=== PATIENT | female | born 1935 ===

== ENCOUNTER 2017-10-30 09:44 | Emergency (ER) | payer SELFPAY ==
[2017-10-30 10:10] VITALS: O2SAT 97
[2017-10-30] MEDS ORDERED: Sodium Chloride 0.9% 1,000 ML IV STA (11:01)
--- NOTE | 2017-10-30 11:33 | ED PDOC ---
HPI: General Adult Time Seen by Provider: 10/30/17 10:00 Chief Complaint (Nursing): High Blood Pressure Chief Complaint (Provider): Constipation & dizziness History Per: Patient History/Exam Limitations: no limitations Onset/Duration Of Symptoms: Days (x2) Have you had recent travel within the past 21 days to any of the following countries: [place], [place], [place] or [place]?: Yes Other Location:: [facility] Current Symptoms Are (Timing): Still Present Additional Complaint(s): Scarlett Doran is an 82 year old female, with a past medical history of hypertension, depression, and right knee replacement surgery , who presents to the emergency department accompanied by daughter complaining of constipation, some dizziness, and loss of appetite onset x2 days. Patient reports she recently came from [facility] x2 months ago. She denies any vomiting, fever, or pain. No further medical complaints. PMD: None provided. Past Medical History Reviewed: Historical Data, Nursing Documentation, Vital Signs Vital Signs: Last Vital Signs Temp 97.4 F L 10/30/17 16:05 Pulse 72 10/30/17 16:05 Resp 20 10/30/17 16:05 BP 193/75 H 10/30/17 16:05 Pulse Ox 97 10/30/17 16:08 - Medical History PMH: Depression, HTN - Surgical History Other surgeries: Right knee replacement - Family History Family History: States: Unknown Family Hx - Social History Current smoker - smoking cessation education provided: No Alcohol: None Drugs: Denies - Home Medications Home Medications: Ambulatory Orders Medication Instructions Recorded Nitrofurantoin Macrocrystals 100 mg PO BID #14 cap 10/30/17 [Macrobid] - Allergies Allergies/Adverse Reactions: Allergies Allergy/AdvReac Type Severity Reaction Status Date / Time No Known Allergies Allergy Verified 10/30/17 10:15 Review of Systems ROS Statement: Except As Marked, All Systems Reviewed And Found Negative Constitutional: Negative for: Fever, Other (pain) Gastrointestinal: Positive for: Constipation, Other (loss of appetite). Negative for: Vomiting Neurological: Positive for: Dizziness (some) Physical Exam - Reviewed Nursing Documentation Reviewed: Yes Vital Signs Reviewed: Yes - Physical Exam Appears: Positive for: Well, Non-toxic, No Acute Distress Head Exam: Positive for: ATRAUMATIC, NORMAL INSPECTION, NORMOCEPHALIC Skin: Positive for: Normal Color, Warm, Dry Eye Exam: Positive for: Normal appearance, EOMI, PERRL Neck: Positive for: Normal, Painless ROM, Supple Cardiovascular/Chest: Positive for: Regular Rate, Rhythm. Negative for: Murmur Respiratory: Positive for: Normal Breath Sounds. Negative for: Respiratory Distress Gastrointestinal/Abdominal: Positive for: Normal Exam, Bowel Sounds, Soft. Negative for: Tenderness, Guarding, Rebound Back: Positive for: Normal Inspection. Negative for: L CVA Tenderness, R CVA Tenderness Extremity: Positive for: Normal ROM. Negative for: Pedal Edema, Deformity, Swelling Neurologic/Psych: Positive for: Alert, Oriented. Negative for: Motor/Sensory Deficits - Laboratory Results Result Diagrams: 10/30/17 12:25 10/30/17 12:25 - ECG O2 Sat by Pulse Oximetry: 97 (RA) Pulse Ox Interpretation: Normal Medical Decision Making Medical Decision Making: Time: 11:01 Initial Plan: --Comp Metabolic Panel --CBC w/ differential --NS IV 1,000 ml @ 1,000 mls/hr --Fleet enema 135 ml [place] --Urine culture --Urinalysis --reevaluation Time: 14:00 Labs reviewed, and are indicative of UTI. Will start pt on Rocephin IV for first dose here Pt had a bowel movement here so family refused the enema. pt appears well and is comfortable Clinical Impression: UTI Patient is medically stable and will be discharged home with rx for Macrobid. Patient will follow up with PMD. Scribe Attestation: Documented by Perfecto Mueller & Darlene Watson, acting as scribes for Fransisco Mehta MD Provider Scribe Attestation: All medical record entries made by the Scribe were at my direction and personally dictated by me. I have reviewed the chart and agree that the record accurately reflects my personal performance of the history, physical exam, medical decision making, and the department course for this patient. I have also personally directed, reviewed, and agree with the discharge instructions and disposition. Disposition - Clinical Impression Clinical Impression: UTI (urinary tract infection) - Patient ED Disposition Is Patient to be Admitted: No Counseled Patient/Family Regarding: Studies Performed, Diagnosis, Need For Followup, Rx Given - Disposition Referrals: [facility] [Outside] [facility] [Outside] Disposition: Routine/Home Disposition Time: 15:51 Condition: IMPROVED Additional Instructions: follow up with your primary doctor/clinic in 1-2 days return to the ED with any worsening or concerning symptoms. Prescriptions: Nitrofurantoin Macrocrystals [Macrobid] 100 mg PO BID #14 cap Instructions: Urinary Tract Infection in Women (ED) Forms: [facility] (Maltese) Print Language: PORTUGUESE
[2017-10-30 11:49] LABS: RBC URINE 8 /hpf (0-3); URINE BACTERIA MOD (<OCC); URINE BILIRUBIN NEGATIVE (NEGATIVE); URINE BLOOD NEGATIVE (NEGATIVE); URINE COLOR YELLOW (YELLOW); URINE GLUCOSE (UA) NEG (Normal); URINE KETONE NEGATIVE (NEGATIVE); URINE LEUKOCYTE ESTERASE LARGE Leu/uL (Negative); URINE PROTEIN NEGATIVE (NEGATIVE); URINE UROBILINOGEN 0.2-1.0 mg/dL (0.2-1.0); WBC URINE 178 /hpf (0-5)
[2017-10-30 12:34] LABS: BASO % 0.6 % (0.0-2.0); EOS % 0.5 % (0.0-4.0); HEMATOCRIT 35.2 % (34.0-47.0); LYMPH # 1.3 K/uL (1.0-4.3); LYMPH % 15.9 % (20.0-40.0); MEAN CELL VOLUME 87.7 fl (81.0-99.0); MEAN CORPUSCULAR HEMOGLOBIN 28.8 pg (27.0-31.0); MEAN CORPUSCULAR HGB CONC 32.8 g/dL (33.0-37.0); MEAN PLATELET VOLUME 9.6 fl (7.2-11.7); MONO % 11.9 % (0.0-10.0); NEUT # 5.7 K/uL (1.8-7.0); NEUT % 71.1 % (50.0-75.0); WHITE BLOOD COUNT 8.1 K/uL (4.8-10.8)
[2017-10-30 12:49] LABS: ALB/GLOB RATIO 1.4 (1.0-2.1); ALKALINE PHOSPHATASE 84 U/L (38-126); ALT/SGPT 34 U/L (9-52); AST/SGOT 22 U/L (14-36); BILIRUBIN,TOTAL 0.6 mg/dl (0.2-1.3); BLOOD UREA NITROGEN 20 mg/dl (7-17); CALCIUM 9.3 mg/dL (8.4-10.2); CARBON DIOXIDE 27 mmol/L (22-30); CHLORIDE 101 mmol/L (98-107); GFR AFRICAN-AMERICAN > 60; GLUCOSE,RANDOM 97 mg/dL (65-105); POTASSIUM 4.5 MMOL/L (3.6-5.0); SODIUM 131 mmol/l (132-148); TOTAL PROTEIN 6.9 G/DL (6.3-8.2)
[2017-10-30] MEDS ORDERED: cefTRIAXone 2 GM in Sodium Chloride 0.9% 100 ML IVPB STA (14:11)
[2017-10-30] MEDS ORDERED: cefTRIAXone IV 1 gm in Dextros 50 ML IVPB ONE (14:25)
[2017-10-30] MEDS ORDERED: cefTRIAXone 1 GM in Sodium Chloride 0.9% 100 ML IVPB STA (14:33)
[2017-10-30] MEDS ORDERED: cefTRIAXone IV 1 gm in Dextros 50 ML IVPB STA (14:40)
[2017-10-30 16:22] VITALS: BP 193/75; PULSE 72; RESP 20; TEMP 97.4
== END 2017-10-30 16:05 | disposition home or self-care (01) ==
LOC: H.ER 09:44
DX: N39.0 Urinary tract infection, site not specified (principal); I10 Essential (primary) hypertension; F32.9 Major depressive disorder, single episode, unspecified; K59.00 Constipation, unspecified; Z96.651 Presence of right artificial knee joint
CPT/HCPCS: 80053; 81003; 85025; 87086; 87181; 99285; J0696; J7040